=== PATIENT | female | born 1940 | race Asian ===

== ENCOUNTER 2016-12-05 08:55 | Emergency (ER) | payer OTHER ==
[~2016-12-05] VITALS: Ht 162.6 cm; Wt 60.0 kg
[~2016-12-05 08:55] MED LIST: ALLO100T; AMLO-511; ATEN25; COLC0.6T69 PO; LEVO100T4
[2016-12-05 09:11] LABS: GLUCOSE,POINT OF CARE 136 MG/DL (70-110)
[2016-12-05] MEDS ORDERED: METF500T4 PO (09:15)
[2016-12-05] MEDS ORDERED: ALLO100T PO (09:15)
[2016-12-05] MEDS ORDERED: LOSA50TA37 PO (09:15)
[2016-12-05] MEDS ORDERED: MECLIZINE HCL 25 MG TABLET PO ONE (09:30)
[2016-12-05 09:58] LABS: BASOPHILS # (AUTO) 0.02 K/uL (0.00-0.20); BASOPHILS % (AUTO) 0.2 % (0.0-2.0); EOSINOPHILS # (AUTO) 0.03 K/uL (0.00-0.70); EOSINOPHILS % (AUTO) 0.45 % (1.0-6.0); HEMOGLOBIN 12.5 g/dL (12.0-16.0); LYMPHOCYTES # (AUTO) 0.9 K/uL (1.0-4.8); MEAN CORPUSCULAR HEMOGLOBIN 33.3 pg (26.0-34.0); MEAN CORPUSCULAR HGB CONC 33.7 G/dL (31.0-37.0); MEAN CORPUSCULAR VOLUME 99 fL (80-100); MONOCYTES # (AUTO) 0.2 K/uL (0.1-1.0); MONOCYTES % (AUTO) 2.6 % (2.0-9.0); NEUTROPHILS # (AUTO) 6.4 K/uL (1.8-7.7); NEUTROPHILS % (AUTO) 84.7 % (40.0-70.0); PLATELET COUNT (AUTO) 321 K/uL (150-450); RED BLOOD CELL COUNT(AUTO) 3.74 MIL/uL (4.00-5.20); RED CELL DISTRIBUTION WIDTH 14.4 % (11.5-14.5); WHITE BLOOD COUNT (AUTO) 7.5 K/uL (4.5-11.0)
[2016-12-05 10:10] LABS: CALCIUM, TOTAL 8.8 mg/dL (8.8-10.5); CREATININE 1.55 mg/dL (0.60-1.30); POTASSIUM 3.6 mmol/L (3.5-5.1)
[2016-12-05 10:16] LABS: ALBUMIN 3.1 g/dL (3.4-5.0); BILIRUBIN,TOTAL 0.5 mg/dL (0.1-1.0); TOTAL PROTEIN, SERUM 8.1 g/dL (6.4-8.2)
[2016-12-05 10:34] LABS: APPEARANCE,URINE CLEAR (CLEAR); GLUCOSE, URINE (UA) NEGATIVE (NEGATIVE); KETONES,URINE NEGATIVE (NEGATIVE); LEUKOCYTE ESTERASE ,URINE NEGATIVE (NEGATIVE); OCCULT BLOOD,URINE MODERATE (NEGATIVE); PROTEIN,URINE SEE CONFIRM (NEGATIVE)
[2016-12-05 10:36] LABS: SULFOSALICYLIC ACID,URINE 3+ (Negative)
[2016-12-05 10:37] LABS: SQUAMOUS EPITHELIAL CELL,UR Few /LPF (None Seen); WBC,URINE 0-2 /HPF (0-5)
[2016-12-05 13:08] VITALS: BP 137/62
== END 2016-12-05 13:46 | disposition home or self-care (01) ==
LOC: EMS 08:58
DX: R42 Dizziness and giddiness (principal); I10 Essential (primary) hypertension; M54.2 Cervicalgia; M19.90 Unspecified osteoarthritis, unspecified site; E11.9 Type 2 diabetes mellitus without complications; E03.9 Hypothyroidism, unspecified; Z98.890 Other specified postprocedural states; Z79.899 Other long term (current) drug therapy
CPT/HCPCS: 70450; 82962; 93005; 99285

== ENCOUNTER 2023-03-03 22:56 | Emergency (ER) | payer MEDICARE, OTHER ==
[~2023-03-03] VITALS: Ht 152.4 cm; Wt 57.0 kg
[~2023-03-03 22:56] MED LIST changes: +ALBU18HF12 IH; +ALLO-97 PO; -ALLO100T; -AMLO-511; +AMLO2.5T29 PO; -ATEN25; +CALC0.2521 PO; +CHOL200074 PO; -COLC0.6T69 PO; +DOCU100C33 PO; +DOXA1TAB9 PO; +EZET10TA57 PO; +FENO145T26 PO; +FURO40 PO; +FURO40TA5 PO; +GABA-529 PO; -LEVO100T4; +LEVO100T4 PO; +LOSA-382 PO
[2023-03-04 03:45] VITALS: BP 138/64
[2023-03-04 11:16] LABS: GLUCOSE,POINT OF CARE 113 MG/DL (70-110)
== END 2023-03-04 03:45 | disposition home or self-care (01) ==
LOC: EMS 22:57
DX: M25.562 Pain in left knee (principal); M19.90 Unspecified osteoarthritis, unspecified site; J45.909 Unspecified asthma, uncomplicated; E11.9 Type 2 diabetes mellitus without complications; E78.00 Pure hypercholesterolemia, unspecified; I10 Essential (primary) hypertension; E03.9 Hypothyroidism, unspecified
CPT/HCPCS: 82962; 99283